=== PATIENT | male | born 1960 | race Caucasian/White ===

== ENCOUNTER 2018-06-01 16:19 | Inpatient (IN) | payer OTHER ==
[~2018-06-01 16:19] MED LIST: Calcium Chloride 1 GM/10 ML Abboject SYRINGE ONE; EPINEPHrine 1 MG/10 ML Abboject SYRINGE ONE; ISOVUE-370 76%-LOCM 1 ML ONE; Nitroglycerin 0.4 MG TAB (25 Tab Bottle) ONE; Sodium Bicarb 50 MEQ/50 ML Abboject 8.4% SYRINGE ONE
[2018-06-01 16:43] LABS: Bicarbonate (HCO3v) 16.6 mmol/L (1.0-85.0); Hemoglobin - Calc 16.8 g/dL (12.0-18.0); Lactate 13.92 mmol/L (0.50-2.20); Potassium 3.4 mmol/L (3.4-4.7); T. Carbon Dioxide 17.8 mmol/L (1.0-85.0); pH (Venous) 7.248 (7.35-7.45); vO2 Saturation-calc 97.9 % (94-98)
[2018-06-01 16:50] LABS: Actual Bicarbonate (HCO3a) 20.2 mEq/L (22-28); CO2 Tension 40.1 mmHg (35.0-45.0); O2 Tension (PaO2) 113.7 mmHg (80.0-100.0); pH, Arterial 7.32 (7.35-7.45)
[2018-06-01 16:51] LABS: Hemoglobin 15.7 g/dL (14.0-18.0); Mean Corpuscular HGB CONC 33.5 g/dL (32.0-36.0); Mean Corpuscular Hemoglobin 31.8 pg (27.0-31.0); Mean Corpuscular Volume 94.9 fL (78.0-98.0); Platelet Count 280 thou/uL (130-400); RBC Distribution Width 12.9 % (11.5-14.5); Red Blood Cell (RBC) Count 4.93 mill/uL (4.70-6.10)
[2018-06-01 16:51] LABS: Analyzer IN Cardio ER; Base Excess (BEa) -5.4 mEq/L (-2.0 to +3.0); Calcium, Ionized 1.19 mmol/L (1.12-1.30); Hemoglobin (Hb) 15.6 g/dL (14.0-18.0); Puncture Site RBA
[2018-06-01 16:52] LABS: ALV-art Gradient 331.775 (0-20)
[2018-06-01 16:54] LABS: INR-International Normal Ratio 1.2; Prothrombin Time 14.8 SEC (12.0-14.7)
[2018-06-01] MEDS ORDERED: Piperacillin/Tazobactam 4.5 GM VIAL ONE ×2 (16:54→16:59)
[2018-06-01] MEDS ORDERED: fentaNYL Citrate/PF 2,000 MCG in Sodium Chloride 0.9% 60 ML IV SCH ×2 (16:57→19:33)
[2018-06-01 17:00] LABS: Bilirubin Negative (Negative); Blood, Urine Moderate (Negative); Clarity TURBID (Clear); Glucose, Urine (Dipstick) 250 mg/dL (Negative); Leukocyte Negative (Negative); Nitrite Negative (Negative); Protein, Urine (Dipstick) > or equal to 300 mg/dL (Neg-Trace); Specific Gravity, Urine 1.013 (1.002-1.036); pH, Urine 7.5 (5.0-9.0)
[2018-06-01 17:03] LABS: Squamous Epithelial 0-3 HPF (0-3)
[2018-06-01 17:04] LABS: Pathc Cast-AUWi Flag 4.36 (0-2.49); Yeast-AUWi Flag 64.1 (0-25.0)
[2018-06-01 17:09] LABS: ALT (SGPT) 498 U/L (8-55); AST (SGOT) 351 U/L (5-34); Albumin 3.5 g/dL (3.5-5.0); Alkaline Phosphatase 83 U/L (40-150); Anion Gap 25 mmol/L (10-20); BUN (Urea Nitrogen) 16 mg/dL (8.4-25.7); Bilirubin, Total 0.2 mg/dL (0.2-1.2); CK (CPK) 138 U/L (30-200); Calc. Creatinine Clearance 0 mL/min (70-130); Calcium 11.6 mg/dL (7.8-10.44); Carbon Dioxide 21 mmol/L (22-29); Chloride 101 mmol/L (98-107); Estimated GFR-MDRD 55; Globulin 3.2 g/dL (2.4-3.5); Glucose 283 mg/dL (70-105); Lipase 75 U/L (8-78); Potassium 3.5 mmol/L (3.5-5.1); Protein, Total 6.7 g/dL (6.0-8.3); Sodium 143 mmol/L (136-145)
[2018-06-01 17:09] LABS: Amphetamine Not Detected (NotDetected); Barbiturates Screen Not Detected (NotDetected); Benzodiazepine Screen Not Detected (NotDetected); Cocaine Metabolite Screen Not Detected (NotDetected); Medtox Control Line Valid? VALID (VALID); Medtox Reader # READER 4; Methadone Not Detected (NotDetected); Methamphetamine Not Detected (NotDetected); Opiate Screen Not Detected (NotDetected); Oxycodone Screen Not Detected (NotDetected); Phencyclidine (PCP) Not Detected (NotDetected); THC/Cannabinoid Screen Not Detected (NotDetected); Tricyclic Screen Not Detected (NotDetected)
[2018-06-01 17:11] LABS: Bacteria/HPF 2+ HPF (None Seen); Yeast-All Forms None Seen HPF (None Seen)
[2018-06-01 17:12] LABS: Hyaline Casts/LPF 0-3 HYALINE CAST LPF (0-3 Hyaline); Manual Microscopic Reviewed? No Path Casts Seen; RBC/HPF 0-3 HPF (0-3); Renal Epithelial None Seen HPF (0-3); Transitional Epithelial 0-3 HPF (0-3)
[2018-06-01 17:15] LABS: CKMB 7.2 ng/mL (0-6.6); Troponin I 0.743 ng/mL (< 0.028)
[2018-06-01 17:21] LABS: Band 4 % (5-11); Eosinophils 4 % (0-10); Lymphocytes 52 % (21-51); MDiff Complete? YES; Monocytes 8 % (0-10); Neutrophil 28 % (42-75); PLT Morphology Comment Appears Adequate; RBC Morphology Normal; Reactive Lymphocytes 4 % (0-10)
--- NOTE | 2018-06-01 17:29 | RAD ---
SINGLE VIEW OF THE CHEST: 06/01/18 COMPARISON: None. HISTORY: Dyspnea. FINDINGS: Single view of the chest shows a normal sized cardiomediastinal silhouette. There is an endotracheal tube at the lower border of the clavicles. An NG tube can only be followed to the lower aspect of the mediastinum. There is no evidence of consolidation, mass, or pleural effusion. IMPRESSION: 1. No evidence of acute cardiopulmonary disease. 2. Incomplete visualization of the NG tube. POS: [facility]
--- NOTE | 2018-06-01 17:46 | CT ---
NONCONTRAST CT HEAD: 06/01/18 HISTORY: Altered mental status. Ventricular fibrillation. COMPARISON: None available. FINDINGS: There is no evidence of an acute cortical infarction, hemorrhage, mass effect, or midline shift. Ther e is a focus of decreased attenuation seen in the jasmeet, but this is likely artifactual. Ventricular s ystem is normal in size, shape, and position. There is mucosal thickening involving anterior ethmoida l air cells bilaterally. Mastoid air cells are clear. Calvarial structures appear intact. IMPRESSION: No acute intracranial abnormality is demonstrated. POS: [facility]
[2018-06-01] MEDS ORDERED: levETIRAcetam 500 MG/100 ML PREMIX BAG ONE (18:05)
[2018-06-01] MEDS ORDERED: Enoxaparin Sodium 80 MG/0.8 ML SYRINGE ONE (18:05)
--- NOTE | 2018-06-01 18:21 | CT ---
CT ANGIOGRAM THORAX WITH IV CONTRAST AND 3D RECONSTRUCTIONS: 06/01/18 HISTORY: Reported seizure. Patient found in ventricular fibrillation. CRP started. COMPARISON: None available. FINDINGS: No filling defects are seen in the pulmonary arteries to suggest a pulmonary embolus. The thoracic aorta is not well opacified on this exam, but the thoracic aorta is normal in caliber. S cattered vascular calcifications are seen in the thoracic aorta as well as involving the coronary art eries. Endotracheal tube is noted in place and is above the level of the armida. Nasogastric tube is also no susie in place, but the tip terminates at the level of the distal esophagus. The nasogastric tube shoul d be further advance. There are bibasilar parenchymal opacities with consolidation seen in the right lower lobe and to a le sser extent in the posterior aspect right upper lobe. These findings may be attributable to aspiratio n, atelectasis or possibly bibasilar pneumonia. Followup to resolution is recommended. No pleural eff usion is present. There is no evidence of lymphadenopathy. There is a mass-like low density area seen within the posteromedial aspect of the right hepatic lobe measuring 4.5 cm x 2.1 cm. Remainder of the visualized upper abdomen demonstrates a normal CT appeara nce. IMPRESSION: 1. Mass-like density medial aspect of the right hepatic lobe. Followup CT scan of the abdomen wi th IV contrast and following the hepatic mass protocol is recommended. 2. Parenchymal air space opacities with consolidation in the dependent portions of the lungs giuseppe aterally, greater on the right and in the right lower lobe. Findings may be related to aspiration, bu t atelectasis or pneumonia is a possibility as well. Followup to resolution is recommended. 3. Nasogastric tube in place which terminates in the distal esophagus. The nasogastric tube shou ld be further advanced. 4. Endotracheal tube noted in place with tip above the level of the armida. POS: [facility]
[2018-06-01] MEDS ORDERED: Ondansetron HCl/PF 4 MG/2 ML Vial IVP PRN ×2 (18:59→19:31)
[2018-06-01] MEDS ORDERED: Ondansetron ODT 4 MG TAB SL PRN (18:59)
[2018-06-01] MEDS ORDERED: Sodium Bicarb 50 MEQ/50 ML Abboject 8.4% SYRINGE ONE (19:00)
[2018-06-01] MEDS ORDERED: Succinylcholine Chloride 20 MG/ML 10 ml SYRINGE FS ONE (19:00)
[2018-06-01] MEDS ORDERED: EPINEPHrine 1 MG/10 ML Abboject SYRINGE ONE (19:00)
[2018-06-01] MEDS ORDERED: Dextrose 50% Abboject 50 ML SYRINGE SLOW IVP PRN (19:31)
[2018-06-01] MEDS ORDERED: Ventilator Sedation Protocol 1 EACH FS ONE (19:31)
[2018-06-01] MEDS ORDERED: Dextrose 5% in Water 1,000 ML IV PRN (19:31)
[2018-06-01] MEDS ORDERED: Insulin Regular 300 UNITS/3 ML VIAL SC PRN (19:31)
[2018-06-01] MEDS ORDERED: Acetaminophen 650 MG Suppository PR PRN (19:31)
--- NOTE | 2018-06-01 19:32 | HP ---
DATE OF ADMISSION: 06/01/2018 PRIMARY CARE PHYSICIAN: None. The patient is an inmate at detention in [place]. TIME OF SERVICE: 1800. CHIEF COMPLAINT: Ventricular fibrillation arrest, found down. HISTORY OF PRESENT ILLNESS: Mr. Montero is a 58-year-old white male who is currently incarcerated, I believe in [place], who was felt to be having a seizure earlier. EMS was called. On arrival, he was noted to be in ventricular fibrillation. CPR was initiated and the patient received one shock and 3 rounds of bicarbonate and had a spontaneous return of circulation. The patient was intubated there in the field and transported to our facility. On arrival, he was intubated with an LMA, this was removed and he was switched out for 7.5 endotracheal tube, he is on total of 3 dose of bicarbonate. He has also had a femoral CVC placed. The patient was having some agitation on arrival. He was given rocuronium about [address] scans were obtained. Lab show elevated white count, he has mildly elevated troponin at 0.743. Remaining of his labs are fairly normal. CT angiogram was negative for pulmonary embolus, there did show bibasilar opacities concerning for aspiration pneumonitis versus pneumonia. Per report on arrival, the patient to have purulence from the tip of his penis. Urinalysis is significant for possible UTI. Known past medical history: none except for BPH. PAST MEDICAL HISTORY: 1. Benign prostatic hypertrophy. 2. Probable diabetes mellitus type 2. PAST SURGICAL HISTORY: Significant for left hip surgery. HOME MEDICATIONS: None. ALLERGIES: NKDA. FAMILY HISTORY: Unknown. SOCIAL HISTORY: Not obtainable due to intubated status. REVIEW OF SYSTEMS: Unobtainable due to mental status. PHYSICAL EXAMINATION: VITAL SIGNS: Temperature 95.4, pulse 83, blood pressure 97/75 with a MAP of 70 , respiratory rate 14, satting 97% on the ventilator. He is currently on assist control, tidal volume of 550, rate of 14, pressure support of 10 and a PEEP of 5. He is on 70% FiO2. GENERAL: He is sedated, paralyzed and orally intubated on the ventilator. HEENT: Normocephalic, atraumatic. Pupils are 2-3 mm and minimally reactive. Mucous membranes are moist. Oral endotracheal tube is in place. NECK: Supple. There is no lymphadenopathy, JVD, or thyromegaly. CARDIOVASCULAR: There is normal carotid upstrokes. I do not appreciate bruits. LUNGS: Clear to auscultation. He has no wheezes, no rales, no rhonchi. No prolonged expiratory phase. No crackles heard. ABDOMEN: Soft, nondistended, and nontympanic. He has hypoactive bowel sounds present in all 4 quadrants. EXTREMITIES: No cyanosis, no clubbing, no edema. Feet are cool and he has a thready dorsalis pedis and nonpalpable posterior tibial pulses. SKIN: Warm, moist, and well perfused. There is no rashes or lesions. Femoral CVC site is clean, dry, and intact. MUSCULOSKELETAL: Normal to inspection. Large joints appear normal. There is no evidence of inflammation or palpable effusions. NEUROLOGIC: Not testable due to paralytics and mental status changes. LABORATORY DATA: Sodium 143, potassium 3.5, chloride 101, bicarb 21, BUN 16, creatinine 1.33 and calcium 11.6 with a glucose of 283. Liver function showed an AST of 351 and ALT of 498, otherwise normal. CBC showed a white count of 13,000. He had in string differential with 28% granulocytes, 4% bands, 52% lymphocytes and 4% atypical lymphs. Hemoglobin 15.7 , hematocrit 46.8, platelet count is 250,000. INR is 1.2. ABG was fairly normal. Urinalysis was significant for elevated white blood cells, leukoesterase and nitrate. He had no squamous cells. CK was normal at 136 with elevated CK-MB at 7.2 and troponin I of 0.743. A i-STAT lactate on arrival was 13.92. CT angiogram as above. A chest x-ray was done showed no acute cardiopulmonary disease and complete NG tube evaluation and CT scan of the head was negative for acute intracranial abnormalities. ASSESSMENT AND PLAN: 1. Out of hospital ventricular fibrillation arrest. The patient was loaded with amiodarone in the emergency department. We will continue. Cardiology has been consulted. 2. Acute hypoxemic respiratory failure secondary to #1. The patient is currently intubated. We will continue sedation protocol and continue ventilator management. Pulmonary Critical Care has been consulted. Dr. Knight is aware. 3. Demand ischemia. 4. Metabolic encephalopathy. 5. Possible urinary tract infection versus urethritis. 6. Severe sepsis. 7. History of benign prostatic hypertrophy. 8. Probable diabetes mellitus type 2. The patient will be admitted to the critical care unit as above. Greater than 45 minutes critical care was spent with the patient. SONAL
[2018-06-01] MEDS ORDERED: Lorazepam 2 MG/ML VIAL SLOW IVP PRN (19:33)
[2018-06-01] MEDS ORDERED: PROPOFOL 20 ML ONE (19:33)
[2018-06-01] MEDS ORDERED: Fentanyl BOLUS 250 ML IVPB PRN (19:33)
[2018-06-01] MEDS ORDERED: Propofol BOLUS 1,000 MG/100 ML VIAL IV PRN (19:33)
[2018-06-01] MEDS ORDERED: Propofol 1,000 MG/100 ML VIAL IV PRN (19:33)
[2018-06-01] MEDS ORDERED: DISCONTINUE PREVIOUS NARCOTIC PAIN MEDICATIONS AND BENZODIAZEPINES FS SCH (19:33)
[2018-06-01] MEDS ORDERED: Propofol 1,000 MG/100 ML VIAL IV ONE (19:33)
[2018-06-01] MEDS: Sodium Chloride 0.9% 1,000 ML IV SCH (19:35)
[2018-06-01] MEDS ORDERED: Amiodarone In Dextrose 200 ML IVPB SCH (19:45)
[2018-06-01] MEDS ORDERED: ALL FLUIDS SHOULD BE DEXTROSE FREE IF POSSIBLE FS SCH (20:00)
[2018-06-01] MEDS ORDERED: DO NOT USE PRE-EXISTING LYTE PROTOCOL FS SCH (20:00)
[2018-06-01] MEDS ORDERED: Acetaminophen 1,000 MG in Premix Bag 1 BAG IVPB PRN (20:00)
[2018-06-01] MEDS ORDERED: Sodium Chloride 0.9% 1,000 ML IV SCH (20:00)
[2018-06-01 20:13] VITALS: BMI 26.1
[2018-06-01] MEDS: Vecuronium 10 MG VIAL IV PRN (20:14)
[2018-06-01 20:27] LABS: CKMB 58.1 ng/mL (0-6.6); Troponin I 7.631 ng/mL (< 0.028)
[2018-06-01 20:28] LABS: Calcium 8.6 mg/dL (7.8-10.44); Magnesium 1.6 mg/dL (1.6-2.6); Phosphorus 2.7 mg/dL (2.3-4.7)
[2018-06-01] MEDS: Amiodarone HCl 450 MG, Admixture Fee 1 EACH in Dextrose 5% in Water 250 ML IVPB SCH (20:40)
[2018-06-01 21:18] LABS: Actual Bicarbonate (HCO3a) 20.9 mEq/L (22-28); Base Excess (BEa) -5.1 mEq/L (-2.0 to +3.0); CO2 Tension 42.1 mmHg (35.0-45.0); Carboxyhemoglobin (COHb) 0.7 gm% (0.0-3.0); Hemoglobin (Hb) 17.1 g/dL (14.0-18.0); pH, Arterial 7.31 (7.35-7.45)
[2018-06-01 21:19] LABS: ALV-art Gradient 204.975 (0-20); Potassium - ABG Lab 3.3 mmol/L (3.70-5.30); Puncture Site LRA
[2018-06-01] MEDS: Famotidine/PF 20 mg/2ml Vial SLOW IVP SCH (21:36)
[2018-06-01] MEDS ORDERED: Piperacillin/Tazobactam 4.5 GM in Sodium Chloride 0.9% 100 ML IVPB SCH (22:00)
[2018-06-01 23:00] LABS: INR-International Normal Ratio 1.2; PTT 32.5 SEC (22.9-36.1); Prothrombin Time 15.1 SEC (12.0-14.7)
[2018-06-01] MEDS ORDERED: Magnesium 2 GM/NS 0.9% 100 ML 2 GM in Premix Bag 1 BAG IVPB SCH (23:00)
[2018-06-01 23:11] LABS: Anion Gap 18 mmol/L (10-20); BUN (Urea Nitrogen) 17 mg/dL (8.4-25.7); Calc. Creatinine Clearance 86 mL/min (70-130); Calcium 8.5 mg/dL (7.8-10.44); Carbon Dioxide 21 mmol/L (22-29); Chloride 103 mmol/L (98-107); Estimated GFR-MDRD 69; Glucose 314 mg/dL (70-105); Lactic Acid 6.2 mmol/L (0.5-2.2); Phosphorus 3.5 mg/dL (2.3-4.7); Potassium 3.2 mmol/L (3.5-5.1); Sodium 139 mmol/L (136-145)
[2018-06-01] MEDS: Piperacillin/Tazobactam 3.375 GM in Sodium Chloride 0.9% 100 ML IVPB SCH (23:19)
[2018-06-01] MEDS: Insulin Regular 300 UNITS/3 ML VIAL SC PRN (23:20)
[2018-06-02] MEDS ORDERED: Norepinephrine 8 MG/250 ML BAG IVPB PRN ×2 (00:24→11:46)
--- NOTE | 2018-06-02 02:34 | CON ---
DATE OF CONSULTATION: 06/01/2018 HISTORY OF PRESENT ILLNESS: Werner Montero is a 58-year-old inmate in [place] , who apparently had ventricular fibrillation arrest. When paramedics arrived, he was found to be in ventricular fibrillation. CPR was started. He was shocked and then converted to sinus rhythm. Epi drip was started for hypotension. EKG revealed right-bundle branch block, no acute changes. Patient currently is intubated and no further history is available. PAST MEDICAL HISTORY: Apparently none. MEDICATIONS: He is not taking any medications. ALLERGIES: No known allergies. SOCIAL HISTORY, FAMILY HISTORY, REVIEW OF SYSTEMS: Unobtainable. PHYSICAL EXAMINATION: VITAL SIGNS: 171/115, pulse of 112, sinus rhythm on the monitor. At times, he will had increased rate up to 130 to 140 per minute. CHEST: Clear. CARDIAC: S1, S2 normal without any S3, S4, or murmurs. ABDOMEN: Positive bowel sounds. EXTREMITIES: Revealed no edema. NEUROLOGIC: Patient is sedated. LABORATORY DATA: EKG reveals normal sinus rhythm with right- bundle branch block. Hemoglobin 15.7, hematocrit 46.8, white count 13,000, platelets 280, 000. INR 1.2, pH 7.30, pCO2 of 40.1, pO2 of 113.7. Sodium 139, potassium 3.4, chloride 100, carbon dioxide 21, BUN 16, creatinine 1.33, glucose 283. AST 351 and ALT 498. CK 138. CK-MB 7.2, troponin I 0.743. TSH is elevated at 9.6945. Urine drug screen is negative. Urinalysis reveals greater than 50 wbc's, 2+ bacteria. IMPRESSION: 1. Ventricular fibrillation arrest with return of spontaneous circulation. 2. Probable urinary tract infection, questionable sepsis. PLAN: Patient will be treated with antibiotics. Echocardiogram will be performed to assess left ventricular function. Further cardiac evaluation will be predicated on return of neurological function. [facility]
[2018-06-02] MEDS: Vecuronium 10 MG VIAL IV PRN (03:25)
[2018-06-02] MEDS: Sodium Chloride 0.9% 1,000 ML IV SCH ×2 (05:15→17:26)
[2018-06-02] MEDS: Amiodarone HCl 450 MG, Admixture Fee 1 EACH in Dextrose 5% in Water 250 ML IVPB SCH (05:15)
[2018-06-02] MEDS: Piperacillin/Tazobactam 3.375 GM in Sodium Chloride 0.9% 100 ML IVPB SCH ×2 (05:16→12:13)
[2018-06-02] MEDS: Insulin Regular 300 UNITS/3 ML VIAL SC PRN (05:16)
[2018-06-02 05:32] LABS: Hemoglobin A1c 5.7 % (4.0-6.0)
[2018-06-02 05:40] LABS: INR-International Normal Ratio 1.2; PTT 31.7 SEC (22.9-36.1); Prothrombin Time 15.1 SEC (12.0-14.7)
[2018-06-02 05:45] LABS: Anion Gap 19 mmol/L (10-20); BUN (Urea Nitrogen) 17 mg/dL (8.4-25.7); Calc. Creatinine Clearance 86 mL/min (70-130); Calcium 8.1 mg/dL (7.8-10.44); Carbon Dioxide 18 mmol/L (22-29); Chloride 105 mmol/L (98-107); Estimated GFR-MDRD 69; Glucose 317 mg/dL (70-105); Phosphorus 3.5 mg/dL (2.3-4.7); Potassium 3.3 mmol/L (3.5-5.1); Sodium 139 mmol/L (136-145)
[2018-06-02 05:50] LABS: ALT (SGPT) 549 U/L (8-55); AST (SGOT) 560 U/L (5-34); Albumin 3.5 g/dL (3.5-5.0); Alkaline Phosphatase 68 U/L (40-150); Anion Gap 18 mmol/L (10-20); BUN (Urea Nitrogen) 18 mg/dL (8.4-25.7); Bilirubin, Total 0.7 mg/dL (0.2-1.2); Calc. Creatinine Clearance 86 mL/min (70-130); Calcium 8.2 mg/dL (7.8-10.44); Carbon Dioxide 18 mmol/L (22-29); Cardiac Risk 5.3 (Less than 4.5); Chloride 105 mmol/L (98-107); Cholesterol 197 mg/dl (< 200 Desired); Estimated GFR-MDRD 69; Globulin 3.1 g/dL (2.4-3.5); Glucose 322 mg/dL (70-105); HDL Cholesterol 37 mg/dL (>60 Neg Risk); LDL Cholesterol, Calculated 123 mg/dL; Magnesium 2.3 mg/dL (1.6-2.6); Potassium 3.3 mmol/L (3.5-5.1); Protein, Total 6.6 g/dL (6.0-8.3); Sodium 138 mmol/L (136-145); Triglycerides 183 mg/dL (Less than 150)
[2018-06-02 05:56] LABS: Troponin I 30.402 ng/mL (< 0.028)
[2018-06-02 06:23] LABS: Hemoglobin 15.3 g/dL (14.0-18.0); Mean Corpuscular HGB CONC 32.5 g/dL (32.0-36.0); Mean Corpuscular Hemoglobin 31.2 pg (27.0-31.0); Mean Platelet Volume 7.9 fL (7.4-10.4); Platelet Count 338 thou/uL (130-400); Red Blood Cell (RBC) Count 4.91 mill/uL (4.70-6.10); White Blood Cell (WBC) Count 22.6 thou/uL (4.8-10.8)
[2018-06-02 06:26] LABS: Band 27 % (5-11); Lymphocytes 4 % (21-51); MDiff Complete? YES; Monocytes 3 % (0-10); Neutrophil 65 % (42-75)
[2018-06-02 07:17] LABS: CKMB 756.5 ng/mL (0-6.6)
[2018-06-02] MEDS ORDERED: Enoxaparin Sodium 80 MG/0.8 ML SYRINGE SC SCH (08:00)
[2018-06-02] MEDS ORDERED: Magnesium 2 GM/NS 0.9% 100 ML 2 GM in Premix Bag 1 BAG IVPB SCH (09:00)
[2018-06-02] MEDS ORDERED: levETIRAcetam In NaCl (Iso-Os) 1,000 MG in Premix Bag 1 BAG IVPB SCH (09:00)
[2018-06-02] MEDS: Famotidine/PF 20 mg/2ml Vial SLOW IVP SCH (09:52)
[2018-06-02] MEDS ORDERED: Norepinephrine 8 MG in Dextrose 5% in Water 242 ML IVPB PRN (10:26)
[2018-06-02 11:05] LABS: Hemoglobin 10.3 g/dL (14.0-18.0); Mean Corpuscular HGB CONC 30.9 g/dL (32.0-36.0); Platelet Count 269 thou/uL (130-400); RBC Distribution Width 13.3 % (11.5-14.5); Red Blood Cell (RBC) Count 3.31 mill/uL (4.70-6.10); White Blood Cell (WBC) Count 20.5 thou/uL (4.8-10.8)
[2018-06-02 11:06] VITALS: BP 79/53
[2018-06-02 11:11] LABS: INR-International Normal Ratio 1.7; PTT 42.3 SEC (22.9-36.1); Prothrombin Time 19.7 SEC (12.0-14.7)
[2018-06-02 11:32] LABS: Band 15 % (5-11); Eosinophils 1 % (0-10); Lymphocytes 9 % (21-51); MDiff Complete? YES; Monocytes 6 % (0-10); Neutrophil 69 % (42-75); PLT Morphology Comment Appears Adequate; Toxic Granulation SLIGHT
[2018-06-02 11:39] LABS: Anion Gap 24 mmol/L (10-20); BUN (Urea Nitrogen) 19 mg/dL (8.4-25.7); Calc. Creatinine Clearance 67 mL/min (70-130); Carbon Dioxide 12 mmol/L (22-29); Chloride 104 mmol/L (98-107); Estimated GFR-MDRD 52; Glucose 691 mg/dL (70-105); Magnesium 2.6 mg/dL (1.6-2.6); Phosphorus 6.7 mg/dL (2.3-4.7); Potassium 2.8 mmol/L (3.5-5.1); Sodium 137 mmol/L (136-145)
[2018-06-02 11:57] LABS: Troponin I 45.458 ng/mL (< 0.028)
[2018-06-02] MEDS ORDERED: DOBUTamine 500 mg/250 ml 500 MG in Premix Bag 1 BAG IVPB SCH (12:15)
[2018-06-02 12:42] LABS: CKMB Greater than 300.0 ng/mL (0-6.6)
[2018-06-02] MEDS: Potassium Chloride 20 MEQ in Premix Bag 1 BAG IVPB SCH ×2 (12:55→17:25)
[2018-06-02 17:43] VITALS: TEMP 92
--- NOTE | 2018-06-02 20:39 | CON ---
DATE OF CONSULTATION: 06/02/2018 SERVICE: Pulmonary Medicine. REASON FOR CONSULTATION: Respiratory failure. HISTORY OF PRESENT ILLNESS: The patient is a 58-year-old male. He was in his unit when he was found down with a convulsive type of activity. Ultimately, it was thought that he was having a seizure. Emergency Services were contacted. When they arrived on scene, he was in ventricular tachycardia/ventricular fibrillation arrest. After 20 minutes of CPR, spontaneous return of circulation was reestablished. He was subsequently brought to our facility. He remained hypotensive. A central line was placed. The LMA was replaced with an endotracheal tube. He was titrated up on 1 pressor. He did well through the evening, but the troponins continued to rise. His blood pressures remain stable and urine output actually started to improve a little bit. Neurologically, he did not make much headway. This morning, right around 6:00 a.m., he started having blood pressure issues. We added epinephrine and dobutamine. Blood pressures continued to fall off and the patient went pulseless once again. Ultimately, repeat chest compressions were performed. We had talked to Dr. Coleman earlier in the day. He said at this point because of the severe neurologic injury, there was no indication for advanced interventions and that best supportive care would be continued. After pulse could not be reestablished, the patient was declared . The patient could not provide any elements of the history when I saw him originally. ASSESSMENT: 1. Acute hypoxic respiratory failure. 2. Ventricular tachycardia arrest. 3. Seizure disorder, likely secondary to cardiac event. 4. Aspiration pneumonitis, unlikely representing true advance infectious process. 5. Anoxic brain injury, suspected. 6. Acute kidney injury. LABORATORY DATA: WBC 20.5, hemoglobin 10.3, platelets 269,000. Band count 15% and down trending. INR 1.7, PT 19.7. PH 7.31, pCO2 42, pO2 61. Potassium 2.8 , anion gap increasing to 24, bicarbonate has dropped to 12, glucose 691. Troponin continues to trend upward to 45. AST and ALT are up trending to 560 and 549, respectively. Urine drug screen is unremarkable. IMAGIN. CT of brain demonstrates no acute intracranial abnormality. 2. CT of the chest demonstrates aspiration pneumonitis type changes with no evidence of a pulmonary embolism. Mass-like density is present in the right hepatic lobe. Endotracheal tubes and enteric catheters were both in place. PLAN: The patient is having hemodynamic instability in the setting of an acute cardiac event. There is a possibility that the seizure occurred as a result of the heart issue or vice versa. Because of his ongoing hemodynamic instability, I favor a primary heart issue. We will continue with best supportive care. We added two separate pressors. Unfortunately, the patient's blood pressure continued to fall off. He once again underwent CPR, but it became clear that additional efforts at recovering this patient to his previous state of health were going to be futile. As such, we made the decision to discontinue aggressive interventions. The patient was allowed to . For details of that event, please refer to the code documentation. CRITICAL CARE TIME: 40 minutes. SONDRAD
[2018-06-03] MEDS ORDERED: Acetaminophen 650 MG Suppository PR PRN (02:00)
--- NOTE | 2018-06-05 22:27 | EKG ---
Test Reason : Blood Pressure : / mmHG Vent. Rate : 082 BPM Atrial Rate : 082 BPM P-R Int : 190 ms QRS Dur : 160 ms QT Int : 390 ms P-R-T Axes : 075 243 060 degrees QTc Int : 455 ms Normal sinus rhythm Right bundle branch block Cannot rule out Inferior infarct , age undetermined Abnormal ECG Confirmed by EMMA SPARKS, TERRI ([id number]), features editor KVNG ESTES ([id number]) on 06/05/2018 10:27:51 PM Referred By: Confirmed By:TERRI CARTER MD
--- NOTE | 2018-06-25 14:27 | DIS ---
DATE OF ADMISSION: 06/01/2018 DATE OF : 06/02/2018 TIME OF : 13:32 PRIMARY CARE PHYSICIAN: None. The patient is currently an inmate in [place]. CAUSE OF : 1. Cardiac arrest. 2. Acute hypoxemic respiratory failure. CONSULTATIONS: 1. Pulmonary Critical Care, Dr. Timbo Barriga. 2. Cardiology, Dr. Hugh Coleman. PROCEDURES: Echocardiogram, 06/02/2018, and code blue CPR, 06/02/2018. HISTORY AND PHYSICAL: Mr. Montero is a 58-year-old gentleman, resident of a retirement in [place], who presented to our emergency department after being found down with some convulsive-type activity. EMS was called, on arrival was noted to be in ventricular fibrillation, and they initiated CPR. He r eceived one shock and 3 rounds of bicarbonate and had spontaneous return of circulation, was intubate d in the field, and transferred to our emergency department. On arrival here, his LMA was switched for endotracheal tube, femoral central venous catheter was plac ed, and we were called for admission. HOSPITAL COURSE: The patient was seen and examined by me in the emergency department and transferred to the ICU. Ventilator protocol for sedation and management were obtained. [facility] were [facility]. Troponins initially were elevated at 0.743. The remainder of the labs were normal. Overnight, the patient did fairly well. He was still on the ventilator, starting to wean. He had no initial rhythm issues. At approximately 13:10, patient went into ventricular fibrillation, again a code blue was called. After 20 minutes of CPR, the patient remained in PEA, had no spontaneous retur n of circulation and was pronounced at 13:32. Wound was notified and was on route to the hospital. DISPOSITION: [place] [facility] [place] [facility].
== END 2018-06-02 13:32 | disposition expired | DRG 871 ==
LOC: ERS 16:19 → CCU 19:04
PROVIDERS: ADMIT Internal Medicine Infectious Disease; ATTEND Internal Medicine Infectious Disease
PROC: 5A1935Z Respiratory Ventilation, Less than 24 Consecutive Hours (ICD-10-PCS; principal; 2018-06-01)
PROC: 0BH17EZ Insertion of Endotracheal Airway into Trachea, Via Natural or Artificial Opening (ICD-10-PCS; 2018-06-01)
PROC: 06HN33Z Insertion of Infusion Device into Left Femoral Vein, Percutaneous Approach (ICD-10-PCS; 2018-06-01)
PROC: 5A12012 Performance of Cardiac Output, Single, Manual (ICD-10-PCS; 2018-06-02)
DX: A41.9 Sepsis, unspecified organism (principal); J96.01 Acute respiratory failure with hypoxia; G93.41 Metabolic encephalopathy; I24.8 Other forms of acute ischemic heart disease; N17.9 Acute kidney failure, unspecified; G93.1 Anoxic brain damage, not elsewhere classified; N39.0 Urinary tract infection, site not specified; R65.20 Severe sepsis without septic shock; N40.0 Benign prostatic hyperplasia without lower urinary tract symptoms; E11.9 Type 2 diabetes mellitus without complications; R56.9 Unspecified convulsions; I46.9 Cardiac arrest, cause unspecified; I45.10 Unspecified right bundle-branch block
CPT/HCPCS: 31500; 36415; 36416; 36556; 51702; 70450; 71045; 71275; 80053; 80061; 80306; 81003; 81015; 82140; 82330; 82550; 82553; 82803; 82805; 83036; 83605; 83690; 83735; 83880; 84100; 84443; 84484; 85025; 85610; 85730; 87040; 93005; 93010; 93306; 94002; 94003; 96361; 96365; 96368; 96372; 96374; 96375; J0171; J0282; J1250; J1650; J1815; J1953; J1956; J2543; J2704; J3010; J3370; J3475; J3480; J7050; J7070; S0028